=== PATIENT | male | born 1940 | race Caucasian/White ===

== ENCOUNTER 2020-12-18 20:10 | Inpatient (IN) | payer MEDICARE, MEDICAID ==
[~2020-12-18] VITALS: Ht 170.2 cm; Wt 73.3 kg
[2020-12-18] MEDS ORDERED: SODIUM CHLORIDE 0.9% 1,000 ML IV ONE (20:45)
[2020-12-18 20:55] LABS: HEMATOCRIT. 44.7 % (42.0-52.0); HEMOGLOBIN. 14.2 g/dL (14.0-18.0); MEAN CORPUSCULAR HEMOGLOBIN 22.8 pg (28.0-32.0); MEAN CORPUSCULAR VOLUME 72.1 fL (80.0-94.0); MEAN PLATELET VOLUME 9.5 fl (7.4-10.4); PLATELET 93 x1000/uL (130-400); RED BLOOD CELL COUNT 6.21 mill/uL (4.7-6.1); RED CELL DISTRIBUTION WIDTH 20.8 % (11.6-14.6)
[2020-12-18 21:01] LABS: CHLORIDE 89 mEq/L (98-107)
[2020-12-18 21:03] LABS: PROTHROMBIN TIME 10.9 sec (9.6-11.0)
[2020-12-18 21:40] LABS: PLATELET ESTIMATE DECREASED
[2020-12-18] MEDS ORDERED: INSULIN REGULAR (DRIP) 100 UNITS in SODIUM CHLORIDE 0.9% 100 ML IV ONE (22:00)
[2020-12-18] MEDS ORDERED: PIPERACILLIN/TAZ 3.375G PREMIX 50 ML IV NR (22:00)
[2020-12-18] MEDS ORDERED: VANCOMYCIN 1 G PREMIX 200 ML IV SCH (22:00)
[2020-12-18] MEDS ORDERED: KCL 20MEQ/100ML PREMIX 100 ML IV ONE (22:00)
[2020-12-18] MEDS ORDERED: PIPERACILLIN/TAZOBACTAM 3.375GM/50ML PREMIX IV ONE (22:00)
[2020-12-18 22:19] LABS: PHOSPHORUS 3.9 mg/dL (2.5-4.9)
[2020-12-18 23:01] LABS: CLARITY URINE CLEAR (CLEAR); COLOR URINE YELLOW (YELLOW); KETONES URINE 1+ (NEGATIVE); LEUKOCYTE ESTERASE URINE NEGATIVE (NEGATIVE); NITRITE URINE NEGATIVE (NEGATIVE); OCCULT BLOOD URINE TRACE (NEGATIVE); PROTEIN URINE 2+ (NEGATIVE); SPECIFIC GRAVITY URINE 1.022 (1.005-1.030); UROBILINOGEN URINE 0.2 E.U./dL (0.2-1.0)
[2020-12-19] VITALS (53 sets, daily range): BP systolic 93–155; BP diastolic 30–96
[2020-12-19] MEDS ORDERED: DEXT 5%/0.45% NACL 1000ML 1,000 ML IV SCH
[2020-12-19] MEDS: MORPHINE SULFATE 2 MG/ML CPJ (NOT FOR IM USE) IV PRN (00:52)
[2020-12-19] MEDS: NOREPINEPHRINE 8 MG in DEXTROSE 5% WATER 250 ML IV PRN (01:24)
[2020-12-19 02:55] LABS: CHLORIDE 94 mEq/L (98-107)
[2020-12-19] MEDS ORDERED: ONDANSETRON HCL 4MG/2ML INJ IV PRN (08:00)
[2020-12-19] MEDS ORDERED: ACETAMINOPHEN 325MG TABLET PO PRN (08:00)
[2020-12-19] MEDS: SODIUM CHLORIDE 0.9% 1,000 ML IV SCH ×2 (08:21→15:22)
[2020-12-19] MEDS: CEFEPIME 1,000 MG in DEXTROSE 5% WATER 50 ML IV SCH (09:47)
[2020-12-19] MEDS ORDERED: INSULIN REGULAR (DRIP) 100 UNITS in SODIUM CHLORIDE 0.9% 99 ML IV ONE (10:15)
[2020-12-19] MEDS ORDERED: DEXTROSE 50% WATER 50ML SYRINGE IV PRN (10:30)
[2020-12-19] MEDS ORDERED: INSULIN GLARGINE UD 100 UNITS/ML SYR SUBCUT NR (11:00)
[2020-12-19] MEDS ORDERED: LIDOCAINE HCL 1% 20ML VIAL (Pyxis) INJ INFIL NR (11:52)
[2020-12-19] MEDS: MIDODRINE HCL 5MG TABLET PO SCH ×3 (11:59→17:28)
[2020-12-19] MEDS: BLOOD SUGAR DIAGNOSTIC STRIP TEST SCH ×3 (12:48→21:00)
[2020-12-19] MEDS: INSULIN LISPRO 100 UNITS/ML SUBCUT SCH ×3 (13:20→21:54)
[2020-12-19] MEDS ORDERED: AMLO5TAB88 MT (13:32)
[2020-12-19] MEDS ORDERED: ENAL20TA18 MT (13:32)
[2020-12-19] MEDS ORDERED: GLIP1TAB5 MT (13:32)
[2020-12-19] MEDS ORDERED: SODIUM HYPOCHLORITE 0.125% 473ML SOLUTION TOP SCH (14:00)
[2020-12-19] MEDS ORDERED: AMIKACIN 500MG in SODIUM CHLORIDE 0.9% 100ML IV NR (15:00)
[2020-12-19] MEDS: VANCOMYCIN 1 G PREMIX 200 ML IV SCH (21:40)
[2020-12-19] MEDS ORDERED: INSULIN GLARGINE UD 100 UNITS/ML SYR SUBCUT SCH (22:00)
[2020-12-19] MEDS: HYDROCODONE/ACETAMINOPHEN 5/325MG TABLET PO PRN (23:29)
[2020-12-20] VITALS (75 sets, daily range): BP systolic 82–155; BP diastolic 50–89
[2020-12-20] MEDS: CEFEPIME 1,000 MG in DEXTROSE 5% WATER 50 ML IV SCH ×3 (00:06→22:43)
[2020-12-20] MEDS: SODIUM CHLORIDE 0.9% 1,000 ML IV SCH ×3 (00:06→16:21)
[2020-12-20 05:55] LABS: HEMATOCRIT. 42.3 % (42.0-52.0); HEMOGLOBIN. 13.6 g/dL (14.0-18.0); MEAN CORPUSCULAR HEMOGLOBIN 22.3 pg (28.0-32.0); MEAN CORPUSCULAR VOLUME 69.4 fL (80.0-94.0); MEAN PLATELET VOLUME 9.2 fl (7.4-10.4); PLATELET 67 x1000/uL (130-400); RED BLOOD CELL COUNT 6.09 mill/uL (4.7-6.1); RED CELL DISTRIBUTION WIDTH 20.7 % (11.6-14.6)
[2020-12-20] MEDS: BLOOD SUGAR DIAGNOSTIC STRIP TEST SCH ×4 (08:22→21:47)
[2020-12-20] MEDS: INSULIN LISPRO 100 UNITS/ML SUBCUT SCH ×4 (08:31→21:00)
[2020-12-20] MEDS: MIDODRINE HCL 5MG TABLET PO SCH ×3 (08:32→16:20)
[2020-12-20 11:34] LABS: PLATELET ESTIMATE DECREASED
[2020-12-20] MEDS: INSULIN GLARGINE UD 100 UNITS/ML SYR SUBCUT SCH ×2 (13:22→22:00)
[2020-12-20] MEDS: MORPHINE SULFATE 2 MG/ML CPJ (NOT FOR IM USE) IV PRN ×2 (18:11→18:21)
[2020-12-20] MEDS: VANCOMYCIN 1 G PREMIX 200 ML IV SCH (21:46)
[2020-12-21] VITALS (92 sets, daily range): BP systolic 83–143; BP diastolic 52–83
[2020-12-21] MEDS: BLOOD SUGAR DIAGNOSTIC STRIP TEST SCH ×4 (06:53→21:36)
[2020-12-21] MEDS: INSULIN LISPRO 100 UNITS/ML SUBCUT SCH ×4 (06:55→21:00)
[2020-12-21 08:00] LABS: HEMATOCRIT. 38.6 % (42.0-52.0); HEMOGLOBIN. 12.7 g/dL (14.0-18.0); MEAN CORPUSCULAR HEMOGLOBIN 22.6 pg (28.0-32.0); MEAN CORPUSCULAR VOLUME 68.9 fL (80.0-94.0); MEAN PLATELET VOLUME 10.9 fl (7.4-10.4); PLATELET 88 x1000/uL (130-400); RED BLOOD CELL COUNT 5.61 mill/uL (4.7-6.1); RED CELL DISTRIBUTION WIDTH 20.2 % (11.6-14.6)
[2020-12-21] MEDS: MIDODRINE HCL 5MG TABLET PO SCH ×3 (09:00→17:00)
[2020-12-21] MEDS: CEFEPIME 1,000 MG in DEXTROSE 5% WATER 50 ML IV SCH (09:33)
[2020-12-21] MEDS: INSULIN GLARGINE UD 100 UNITS/ML SYR SUBCUT SCH ×2 (09:51→21:47)
[2020-12-21] MEDS ORDERED: DEXT 5%/0.9% NACL 1,000 ML IV SCH (11:30)
[2020-12-21] MEDS: FUROSEMIDE 40MG/4ML VIAL IVP SCH (11:45)
[2020-12-21 12:43] LABS: CREATINE KINASE 94 IU/L (39-308)
[2020-12-21 12:56] LABS: PLATELET ESTIMATE DECREASED
[2020-12-21] MEDS ORDERED: KCL 20MEQ/100ML PREMIX 100 ML IV SCH (13:00)
[2020-12-21] MEDS: PIPERACILLIN SODIUM/TAZOBACTAM 4.5 G in DEXT 5% WATER 100 ML IV SCH ×2 (15:28→20:54)
[2020-12-22] VITALS (86 sets, daily range): BP systolic 82–137; BP diastolic 46–76
[2020-12-22] MEDS: MORPHINE SULFATE 2 MG/ML CPJ (NOT FOR IM USE) IV PRN (00:57)
[2020-12-22] MEDS: PIPERACILLIN SODIUM/TAZOBACTAM 4.5 G in DEXT 5% WATER 100 ML IV SCH ×4 (06:16→21:48)
[2020-12-22] MEDS: BLOOD SUGAR DIAGNOSTIC STRIP TEST SCH ×4 (07:00→21:27)
[2020-12-22] MEDS: INSULIN LISPRO 100 UNITS/ML SUBCUT SCH ×4 (08:20→21:49)
[2020-12-22] MEDS: MIDODRINE HCL 5MG TABLET PO SCH ×3 (09:05→16:33)
[2020-12-22] MEDS: FUROSEMIDE 40MG/4ML VIAL IVP SCH ×2 (09:05→16:33)
[2020-12-22] MEDS: HYDROCODONE/ACETAMINOPHEN 5/325MG TABLET PO PRN (09:06)
[2020-12-22] MEDS: INSULIN GLARGINE UD 100 UNITS/ML SYR SUBCUT SCH ×2 (11:43→21:50)
[2020-12-22] MEDS: DEXT 5% WATER + KCL 20MEQ/L 1,000 ML IV SCH (11:48)
[2020-12-22] MEDS ORDERED: KCL 20MEQ/100ML PREMIX 100 ML IV SCH (12:00)
[2020-12-22 16:06] LABS: CREATININE URINE RANDOM < 10.0 mg/dL
[2020-12-23] VITALS (92 sets, daily range): BP systolic 87–148; BP diastolic 53–76
[2020-12-23] MEDS: NOREPINEPHRINE 8 MG in DEXTROSE 5% WATER 250 ML IV PRN (01:18)
[2020-12-23] MEDS: PIPERACILLIN SODIUM/TAZOBACTAM 4.5 G in DEXT 5% WATER 100 ML IV SCH ×3 (04:06→19:52)
[2020-12-23 05:29] LABS: HEMATOCRIT. 39.3 % (42.0-52.0); HEMOGLOBIN. 12.8 g/dL (14.0-18.0); MEAN CORPUSCULAR HEMOGLOBIN 22.5 pg (28.0-32.0); MEAN CORPUSCULAR VOLUME 68.9 fL (80.0-94.0); MEAN PLATELET VOLUME 9.5 fl (7.4-10.4); PLATELET 143 x1000/uL (130-400); RED CELL DISTRIBUTION WIDTH 19.6 % (11.6-14.6)
[2020-12-23 05:43] LABS: PHOSPHORUS 3.1 mg/dL (2.5-4.9)
[2020-12-23] MEDS: BLOOD SUGAR DIAGNOSTIC STRIP TEST SCH ×4 (06:50→21:19)
[2020-12-23] MEDS: FUROSEMIDE 40MG/4ML VIAL IVP SCH ×2 (06:54→18:36)
[2020-12-23] MEDS: INSULIN LISPRO 100 UNITS/ML SUBCUT SCH ×4 (06:54→21:00)
[2020-12-23] MEDS: MIDODRINE HCL 5MG TABLET PO SCH ×3 (09:39→18:36)
[2020-12-23] MEDS: INSULIN GLARGINE UD 100 UNITS/ML SYR SUBCUT SCH ×2 (09:40→21:35)
[2020-12-23] MEDS ORDERED: MAGNESIUM 2 G PREMIX 50 ML IV NR (11:00)
[2020-12-23] MEDS ORDERED: POTASSIUM CHLORIDE INJ 40 MEQ in DEXT 5% WATER 250 ML IV NR (11:00)
[2020-12-23 13:54] LABS: PLATELET ESTIMATE NORMAL
[2020-12-23] MEDS: DEXT 5% WATER + KCL 20MEQ/L 1,000 ML IV SCH (21:27)
[2020-12-24] VITALS (96 sets, daily range): BP systolic 98–144; BP diastolic 46–92
[2020-12-24] MEDS: HYDROCODONE/ACETAMINOPHEN 5/325MG TABLET PO PRN (02:26)
[2020-12-24] MEDS: PIPERACILLIN SODIUM/TAZOBACTAM 4.5 G in DEXT 5% WATER 100 ML IV SCH ×2 (03:28→12:49)
[2020-12-24 05:42] LABS: HEMATOCRIT. 40.3 % (42.0-52.0); HEMOGLOBIN. 13.2 g/dL (14.0-18.0); MEAN CORPUSCULAR HEMOGLOBIN 22.8 pg (28.0-32.0); MEAN CORPUSCULAR VOLUME 69.5 fL (80.0-94.0); MEAN PLATELET VOLUME 8.7 fl (7.4-10.4); PLATELET 156 x1000/uL (130-400); RED BLOOD CELL COUNT 5.79 mill/uL (4.7-6.1); RED CELL DISTRIBUTION WIDTH 19.9 % (11.6-14.6)
[2020-12-24 05:47] LABS: PHOSPHORUS 3.2 mg/dL (2.5-4.9)
[2020-12-24] MEDS: NOREPINEPHRINE 8 MG in DEXTROSE 5% WATER 250 ML IV PRN (06:06)
[2020-12-24] MEDS: FUROSEMIDE 40MG/4ML VIAL IVP SCH ×2 (06:33→17:55)
[2020-12-24] MEDS: BLOOD SUGAR DIAGNOSTIC STRIP TEST SCH ×4 (07:22→21:00)
[2020-12-24] MEDS: INSULIN LISPRO 100 UNITS/ML SUBCUT SCH ×4 (07:23→21:00)
[2020-12-24] MEDS: MIDODRINE HCL 5MG TABLET PO SCH ×3 (09:00→15:58)
[2020-12-24] MEDS: INSULIN GLARGINE UD 100 UNITS/ML SYR SUBCUT SCH (09:08)
[2020-12-24] MEDS: DEXT 5%/0.9% NACL 1,000 ML IV SCH (09:57)
[2020-12-24 11:29] LABS: PLATELET ESTIMATE NORMAL
[2020-12-24] MEDS ORDERED: FAT EMULSIONS 500 ML IV SCH (21:00)
[2020-12-24] MEDS: MEROPENEM 1,000 MG in SODIUM CHLORIDE 0.9% 100 ML IV SCH (22:51)
[2020-12-25] VITALS (87 sets, daily range): BP systolic 90–138; BP diastolic 31–79
[2020-12-25 05:26] LABS: HEMATOCRIT. 36.7 % (42.0-52.0); HEMOGLOBIN. 12.6 g/dL (14.0-18.0); MEAN CORPUSCULAR HEMOGLOBIN 23.4 pg (28.0-32.0); MEAN CORPUSCULAR VOLUME 68.3 fL (80.0-94.0); MEAN PLATELET VOLUME 10.1 fl (7.4-10.4); PLATELET 209 x1000/uL (130-400); RED BLOOD CELL COUNT 5.37 mill/uL (4.7-6.1); RED CELL DISTRIBUTION WIDTH 19.3 % (11.6-14.6)
[2020-12-25 05:41] LABS: PHOSPHORUS 4.7 mg/dL (2.5-4.9)
[2020-12-25 07:19] LABS: PLATELET ESTIMATE NORMAL
[2020-12-25] MEDS: MEROPENEM 1,000 MG in SODIUM CHLORIDE 0.9% 100 ML IV SCH ×2 (07:52→21:51)
[2020-12-25] MEDS: BLOOD SUGAR DIAGNOSTIC STRIP TEST SCH ×4 (07:52→21:00)
[2020-12-25] MEDS: FUROSEMIDE 40MG/4ML VIAL IVP SCH (07:52)
[2020-12-25] MEDS ORDERED: POTASSIUM CHLORIDE INJ 30 MEQ in DEXT 5%/0.9% NACL 1,000 ML IV ONE (08:45)
[2020-12-25] MEDS: INSULIN LISPRO 100 UNITS/ML SUBCUT SCH ×4 (08:51→21:55)
[2020-12-25] MEDS: MIDODRINE HCL 5MG TABLET PO SCH ×3 (08:52→17:40)
[2020-12-25] MEDS: DEXT 5%/0.9% NACL 1,000 ML IV SCH (08:56)
[2020-12-25] MEDS ORDERED: POTASSIUM CHLORIDE INJ 30 MEQ in DEXT 5% WATER 250 ML IV SCH (11:00)
[2020-12-25] MEDS ORDERED: TOTAL PARENTERAL NUTRITION 1,560 ML IV SCH (21:00)
[2020-12-26] VITALS (82 sets, daily range): BP systolic 85–142; BP diastolic 50–81
[2020-12-26 05:43] LABS: HEMATOCRIT. 34.4 % (42.0-52.0); HEMOGLOBIN. 11.1 g/dL (14.0-18.0); MEAN CORPUSCULAR HEMOGLOBIN 22.3 pg (28.0-32.0); MEAN PLATELET VOLUME 10.1 fl (7.4-10.4); PLATELET 192 x1000/uL (130-400); RED BLOOD CELL COUNT 4.99 mill/uL (4.7-6.1); RED CELL DISTRIBUTION WIDTH 19.3 % (11.6-14.6)
[2020-12-26] MEDS ORDERED: INSULIN LISPRO 100 UNITS/ML SUBCUT SCH (06:30)
[2020-12-26] MEDS ORDERED: HEPARIN SODIUM 1,000 UNIT/1ML VIAL IV ONE (07:41)
[2020-12-26] MEDS: BLOOD SUGAR DIAGNOSTIC STRIP TEST SCH ×4 (08:16→21:12)
[2020-12-26] MEDS: MEROPENEM 1,000 MG in SODIUM CHLORIDE 0.9% 100 ML IV SCH ×2 (08:54→20:45)
[2020-12-26] MEDS: INSULIN LISPRO 100 UNITS/ML SUBCUT SCH ×4 (08:55→21:15)
[2020-12-26] MEDS: MIDODRINE HCL 5MG TABLET PO SCH ×3 (09:11→18:21)
[2020-12-26] MEDS ORDERED: IOHEXOL-300 100 ML BOTTLE ONE (11:43)
[2020-12-26] MEDS ORDERED: LIDOCAINE HCL 1% 20ML VIAL (Pyxis) INJ ONE (11:44)
[2020-12-26] MEDS ORDERED: IODIXANOL 320MG/ML 100 ML BOTTLE IV ONE (11:44)
[2020-12-26] MEDS ORDERED: FENTANYL CITRATE/PF 50MCG/ML 5ML VIAL ONE (11:58)
[2020-12-26] MEDS ORDERED: MIDAZOLAM HCL 5 MG/5 ML VIAL ONE (11:59)
[2020-12-26 13:40] LABS: PLATELET ESTIMATE NORMAL
[2020-12-26] MEDS ORDERED: INSULIN LISPRO 100 UNITS/ML SUBCUT NR (19:30)
[2020-12-26] MEDS ORDERED: TOTAL PARENTERAL NUTRITION 1,560 ML IV SCH (21:00)
[2020-12-27] VITALS (95 sets, daily range): BP systolic 70–148; BP diastolic 39–82
[2020-12-27] MEDS: BLOOD SUGAR DIAGNOSTIC STRIP TEST SCH ×4 (06:28→21:03)
[2020-12-27] MEDS: INSULIN LISPRO 100 UNITS/ML SUBCUT SCH ×4 (06:30→21:07)
[2020-12-27 07:54] LABS: HEMATOCRIT. 34.8 % (42.0-52.0); HEMOGLOBIN. 11.4 g/dL (14.0-18.0); MEAN CORPUSCULAR HEMOGLOBIN 22.5 pg (28.0-32.0); MEAN CORPUSCULAR VOLUME 68.7 fL (80.0-94.0); MEAN PLATELET VOLUME 12.1 fl (7.4-10.4); PLATELET 166 x1000/uL (130-400); RED BLOOD CELL COUNT 5.07 mill/uL (4.7-6.1); RED CELL DISTRIBUTION WIDTH 19.1 % (11.6-14.6)
[2020-12-27] MEDS: NOREPINEPHRINE 8 MG in DEXTROSE 5% WATER 250 ML IV PRN (08:34)
[2020-12-27] MEDS: MEROPENEM 1,000 MG in SODIUM CHLORIDE 0.9% 100 ML IV SCH ×2 (08:45→20:24)
[2020-12-27] MEDS: MIDODRINE HCL 5MG TABLET PO SCH ×3 (08:45→16:44)
[2020-12-27 08:57] LABS: NUCLEATED RED BLOOD CELLS 2 /100 WBC; PLATELET ESTIMATE NORMAL
[2020-12-27] MEDS: POTASSIUM CHLORIDE 20MEQ/PACKET PO SCH (09:56)
[2020-12-27] MEDS: FUROSEMIDE 40MG TABLET PO SCH (09:56)
[2020-12-27] MEDS: MORPHINE SULFATE 2 MG/ML CPJ (NOT FOR IM USE) IV PRN (14:35)
[2020-12-27] MEDS: LINEZOLID 600MG TABLET PO SCH (21:03)
[2020-12-28] VITALS (90 sets, daily range): BP systolic 87–180; BP diastolic 39–85
[2020-12-28 05:21] LABS: HEMOGLOBIN. 11.3 g/dL (14.0-18.0); MEAN CORPUSCULAR HEMOGLOBIN 22.1 pg (28.0-32.0); MEAN CORPUSCULAR VOLUME 68.1 fL (80.0-94.0); MEAN PLATELET VOLUME 8.5 fl (7.4-10.4); PLATELET 134 x1000/uL (130-400); RED BLOOD CELL COUNT 5.13 mill/uL (4.7-6.1); RED CELL DISTRIBUTION WIDTH 18.6 % (11.6-14.6)
[2020-12-28] MEDS: NOREPINEPHRINE 8 MG in DEXTROSE 5% WATER 250 ML IV PRN (06:57)
[2020-12-28] MEDS: BLOOD SUGAR DIAGNOSTIC STRIP TEST SCH ×4 (06:57→21:30)
[2020-12-28] MEDS: INSULIN LISPRO 100 UNITS/ML SUBCUT SCH ×4 (07:06→21:31)
[2020-12-28] MEDS: MORPHINE SULFATE 2 MG/ML CPJ (NOT FOR IM USE) IV PRN ×2 (08:00→15:03)
[2020-12-28] MEDS: LINEZOLID 600MG TABLET PO SCH ×2 (08:38→20:44)
[2020-12-28] MEDS: MEROPENEM 1,000 MG in SODIUM CHLORIDE 0.9% 100 ML IV SCH (08:38)
[2020-12-28] MEDS: POTASSIUM CHLORIDE 20MEQ/PACKET PO SCH (08:38)
[2020-12-28] MEDS: MIDODRINE HCL 5MG TABLET PO SCH ×3 (08:39→17:00)
[2020-12-28] MEDS: FUROSEMIDE 40MG TABLET PO SCH (08:40)
[2020-12-28] MEDS ORDERED: LIDOCAINE HCL 1% 20ML VIAL (Pyxis) INJ ONE (08:53)
[2020-12-28] MEDS: DEXT 5%/0.45% NACL 1000ML 1,000 ML IV SCH (15:07)
[2020-12-28] MEDS ORDERED: BUPIVACAINE HCL/PF 0.5% (5MG/ML) 10ML ONE (17:42)
[2020-12-28] MEDS ORDERED: BACITRACIN 15GM TUBE TOP ONE (17:42)
[2020-12-28] MEDS ORDERED: VANCOMYCIN HCL 1 GM/VIAL ONE (17:43)
[2020-12-28] MEDS ORDERED: POLYMYXIN B SULFATE 500000 UNITS/VIAL ONE (17:43)
[2020-12-28] MEDS ORDERED: ROPIVACAINE HCL 10MG/ML 20 ML VIAL EPI ONE (18:22)
[2020-12-28] MEDS ORDERED: PROPOFOL 200MG/20ML VIAL IV ONE (18:37)
[2020-12-28] MEDS ORDERED: CEFAZOLIN SODIUM 1000MG/VIAL ONE (18:37)
[2020-12-28] MEDS ORDERED: MIDAZOLAM HCL 2 MG/2 ML VIAL ONE (18:37)
[2020-12-28] MEDS ORDERED: EPHEDRINE SULFATE 50MG/ML VIAL ONE (18:37)
[2020-12-28] MEDS ORDERED: FENTANYL CITRATE/PF 50MCG/ML 2ML VIAL ONE (18:37)
[2020-12-28 19:29] LABS: PLATELET ESTIMATE NORMAL
[2020-12-29] VITALS (85 sets, daily range): BP systolic 68–180; BP diastolic 40–98
[2020-12-29] MEDS: MEROPENEM 1,000 MG in SODIUM CHLORIDE 0.9% 100 ML IV SCH ×3 (00:03→21:00)
[2020-12-29] MEDS: MORPHINE SULFATE 2 MG/ML CPJ (NOT FOR IM USE) IV PRN ×3 (00:05→12:17)
[2020-12-29] MEDS: INSULIN LISPRO 100 UNITS/ML SUBCUT SCH ×5 (06:42→21:15)
[2020-12-29] MEDS: BLOOD SUGAR DIAGNOSTIC STRIP TEST SCH ×4 (06:42→21:00)
[2020-12-29] MEDS: DEXT 5%/0.45% NACL 1000ML 1,000 ML IV SCH (06:43)
[2020-12-29 06:49] LABS: HEMATOCRIT. 28.2 % (42.0-52.0); HEMOGLOBIN. 8.9 g/dL (14.0-18.0); MEAN CORPUSCULAR VOLUME 69.6 fL (80.0-94.0); MEAN PLATELET VOLUME 8.9 fl (7.4-10.4); PLATELET 87 x1000/uL (130-400); RED BLOOD CELL COUNT 4.06 mill/uL (4.7-6.1); RED CELL DISTRIBUTION WIDTH 18.7 % (11.6-14.6)
[2020-12-29 07:00] LABS: PHOSPHORUS 3.5 mg/dL (2.5-4.9)
[2020-12-29] MEDS: LINEZOLID 600MG TABLET PO SCH ×2 (09:15→21:00)
[2020-12-29] MEDS: POTASSIUM CHLORIDE 20MEQ/PACKET PO SCH (09:15)
[2020-12-29] MEDS: FUROSEMIDE 40MG TABLET PO SCH (09:16)
[2020-12-29] MEDS: MIDODRINE HCL 5MG TABLET PO SCH ×3 (09:16→17:50)
[2020-12-29 11:34] LABS: TOTAL IRON BINDING CAPACITY 130 ug/dL (250-450)
[2020-12-29 12:06] LABS: VITAMIN B12 SERUM >2000 pg/mL pg/mL (211-911)
[2020-12-29 13:18] LABS: FERRITIN 336 ng/mL (22-322)
[2020-12-29 13:58] LABS: PLATELET ESTIMATE DECREASED
[2020-12-30] MEDS: MORPHINE SULFATE 2 MG/ML CPJ (NOT FOR IM USE) IV PRN (00:28)
[2020-12-30 04:00] VITALS: BP 124/71
[2020-12-30] MEDS: BLOOD SUGAR DIAGNOSTIC STRIP TEST SCH ×3 (05:40→19:49)
[2020-12-30 06:33] LABS: HEMATOCRIT. 25.2 % (42.0-52.0); HEMOGLOBIN. 8.4 g/dL (14.0-18.0); MEAN CORPUSCULAR VOLUME 69.2 fL (80.0-94.0); PLATELET 101 x1000/uL (130-400); RED BLOOD CELL COUNT 3.64 mill/uL (4.7-6.1); RED CELL DISTRIBUTION WIDTH 18.2 % (11.6-14.6)
[2020-12-30] MEDS: INSULIN LISPRO 100 UNITS/ML SUBCUT SCH ×4 (06:38→20:01)
[2020-12-30 08:00] VITALS: BP 117/53
[2020-12-30] MEDS: MEROPENEM 1,000 MG in SODIUM CHLORIDE 0.9% 100 ML IV SCH ×2 (09:46→20:03)
[2020-12-30] MEDS: FUROSEMIDE 40MG TABLET PO SCH (09:56)
[2020-12-30] MEDS: LINEZOLID 600MG TABLET PO SCH ×2 (09:56→20:03)
[2020-12-30] MEDS: MIDODRINE HCL 5MG TABLET PO SCH ×3 (09:56→18:45)
[2020-12-30] MEDS: POTASSIUM CHLORIDE 20MEQ/PACKET PO SCH (09:56)
[2020-12-30 12:00] VITALS: BP 100/43
[2020-12-30] MEDS: HYDROCODONE/ACETAMINOPHEN 5/325MG TABLET PO PRN (12:20)
[2020-12-30 15:11] LABS: NUCLEATED RED BLOOD CELLS 1 /100 WBC
[2020-12-30 15:12] LABS: PLATELET ESTIMATE DECREASED
[2020-12-30 16:00] VITALS: BP 152/65
[2020-12-30 20:00] VITALS: BP 144/62
[2020-12-31] VITALS: BP 145/64
[2020-12-31 04:00] VITALS: BP 140/60
[2020-12-31] MEDS: BLOOD SUGAR DIAGNOSTIC STRIP TEST SCH ×4 (05:39→21:59)
[2020-12-31] MEDS: INSULIN LISPRO 100 UNITS/ML SUBCUT SCH ×4 (05:39→21:59)
[2020-12-31 07:43] LABS: BASOPHILS % 0.5 % (0.0-2.0); EOSINOPHILS % 0.2 % (0.0-5.0); HEMATOCRIT. 26.4 % (42.0-52.0); HEMOGLOBIN. 8.8 g/dL (14.0-18.0); LYMPHOCYTES % 12.7 % (20.0-50.0); MEAN CORPUSCULAR HEMOGLOBIN 22.6 pg (28.0-32.0); MEAN CORPUSCULAR VOLUME 67.8 fL (80.0-94.0); MEAN PLATELET VOLUME 9.7 fl (7.4-10.4); MONOCYTES % 9.5 % (2.0-8.0); NEUTROPHILS % 77.1 % (40.0-76.0); PLATELET 178 x1000/uL (130-400); RED BLOOD CELL COUNT 3.89 mill/uL (4.7-6.1); RED CELL DISTRIBUTION WIDTH 18.1 % (11.6-14.6)
[2020-12-31 08:00] VITALS: BP 147/61
[2020-12-31] MEDS: MIDODRINE HCL 5MG TABLET PO SCH ×2 (09:00→13:00)
[2020-12-31] MEDS: FOLIC ACID 1MG TABLET PO SCH (09:28)
[2020-12-31] MEDS: MEROPENEM 1,000 MG in SODIUM CHLORIDE 0.9% 100 ML IV SCH ×2 (09:28→21:12)
[2020-12-31] MEDS: FUROSEMIDE 40MG TABLET PO SCH (09:29)
[2020-12-31] MEDS: POTASSIUM CHLORIDE 20MEQ TABLET SR PO SCH (09:29)
[2020-12-31] MEDS: HYDROCODONE/ACETAMINOPHEN 5/325MG TABLET PO PRN (09:31)
[2020-12-31] MEDS: LINEZOLID 600MG TABLET PO SCH ×2 (09:32→21:12)
[2020-12-31 12:00] VITALS: BP 157/52
[2020-12-31] MEDS ORDERED: HYDRALAZINE 20MG/ML VIAL IV PRN (15:00)
[2020-12-31 16:00] VITALS: BP 138/64
[2020-12-31 20:00] VITALS: BP 110/57
[2020-12-31] MEDS: MORPHINE SULFATE 2 MG/ML CPJ (NOT FOR IM USE) IV PRN (21:16)
[2021-01-01] VITALS: BP 115/66
[2021-01-01 04:00] VITALS: BP 126/56
[2021-01-01] MEDS: BLOOD SUGAR DIAGNOSTIC STRIP TEST SCH ×4 (06:27→20:57)
[2021-01-01 06:38] LABS: HEMATOCRIT. 26.8 % (42.0-52.0); HEMOGLOBIN. 8.7 g/dL (14.0-18.0); MEAN CORPUSCULAR HEMOGLOBIN 22.6 pg (28.0-32.0); MEAN CORPUSCULAR VOLUME 69.8 fL (80.0-94.0); MEAN PLATELET VOLUME 11.2 fl (7.4-10.4); PLATELET 161 x1000/uL (130-400); RED BLOOD CELL COUNT 3.84 mill/uL (4.7-6.1); RED CELL DISTRIBUTION WIDTH 18.4 % (11.6-14.6)
[2021-01-01] MEDS: INSULIN LISPRO 100 UNITS/ML SUBCUT SCH ×4 (07:40→20:57)
[2021-01-01 08:00] VITALS: BP 146/55
[2021-01-01] MEDS: POTASSIUM CHLORIDE 20MEQ TABLET SR PO SCH (09:48)
[2021-01-01] MEDS: FOLIC ACID 1MG TABLET PO SCH (09:48)
[2021-01-01] MEDS: LINEZOLID 600MG TABLET PO SCH (09:48)
[2021-01-01] MEDS: FUROSEMIDE 40MG TABLET PO SCH (09:48)
[2021-01-01] MEDS: MORPHINE SULFATE 2 MG/ML CPJ (NOT FOR IM USE) IV PRN (09:55)
[2021-01-01 12:00] VITALS: BP 139/61
[2021-01-01 13:44] LABS: PLATELET ESTIMATE NORMAL
[2021-01-01 16:00] VITALS: BP 158/56
[2021-01-01 20:00] VITALS: BP 143/84
[2021-01-01] MEDS ORDERED: MEROPENEM 1,000 MG in SODIUM CHLORIDE 0.9% 100 ML IV SCH (21:00)
[2021-01-01] MEDS: CEFTAZIDIME PENTAHYDRATE 2 G in DEXT 5% WATER 100 ML IV SCH (21:39)
[2021-01-01] MEDS: AMPICILLIN 2,000 MG in SODIUM CHLORIDE 0.9% 100 ML IV SCH (23:12)
[2021-01-02 04:00] VITALS: BP 133/74
[2021-01-02] MEDS: AMPICILLIN 2,000 MG in SODIUM CHLORIDE 0.9% 100 ML IV SCH ×3 (05:32→21:16)
[2021-01-02] MEDS: BLOOD SUGAR DIAGNOSTIC STRIP TEST SCH ×4 (05:42→20:30)
[2021-01-02] MEDS: INSULIN LISPRO 100 UNITS/ML SUBCUT SCH ×4 (06:00→20:30)
[2021-01-02 07:22] LABS: HEMATOCRIT. 25.3 % (42.0-52.0); HEMOGLOBIN. 8.4 g/dL (14.0-18.0); MEAN CORPUSCULAR HEMOGLOBIN 22.8 pg (28.0-32.0); MEAN CORPUSCULAR VOLUME 68.9 fL (80.0-94.0); MEAN PLATELET VOLUME 9.3 fl (7.4-10.4); PLATELET 186 x1000/uL (130-400); RED BLOOD CELL COUNT 3.68 mill/uL (4.7-6.1); RED CELL DISTRIBUTION WIDTH 18.6 % (11.6-14.6)
[2021-01-02 08:00] VITALS: BP 130/60
[2021-01-02] MEDS: CEFTAZIDIME PENTAHYDRATE 2 G in DEXT 5% WATER 100 ML IV SCH ×2 (09:21→20:30)
[2021-01-02] MEDS: FOLIC ACID 1MG TABLET PO SCH (09:21)
[2021-01-02] MEDS: FUROSEMIDE 40MG TABLET PO SCH (09:21)
[2021-01-02] MEDS: POTASSIUM CHLORIDE 20MEQ TABLET SR PO SCH (09:21)
[2021-01-02 12:00] VITALS: BP 148/65
[2021-01-02 16:00] VITALS: BP 153/66
[2021-01-02 16:14] LABS: PLATELET ESTIMATE NORMAL
[2021-01-02 20:00] VITALS: BP 124/55
[2021-01-03] VITALS: BP 94/54
[2021-01-03 04:00] VITALS: BP 142/55
[2021-01-03] MEDS: AMPICILLIN 2,000 MG in SODIUM CHLORIDE 0.9% 100 ML IV SCH ×2 (05:14→13:17)
[2021-01-03] MEDS: BLOOD SUGAR DIAGNOSTIC STRIP TEST SCH ×3 (06:41→17:43)
[2021-01-03] MEDS: INSULIN LISPRO 100 UNITS/ML SUBCUT SCH ×2 (06:42→13:17)
[2021-01-03 07:14] LABS: BASOPHILS % 3.9 % (0.0-2.0); EOSINOPHILS % 0.7 % (0.0-5.0); HEMATOCRIT. 27.6 % (42.0-52.0); HEMOGLOBIN. 8.9 g/dL (14.0-18.0); LYMPHOCYTES % 15.3 % (20.0-50.0); MEAN CORPUSCULAR HEMOGLOBIN 22.6 pg (28.0-32.0); MEAN CORPUSCULAR VOLUME 69.9 fL (80.0-94.0); MEAN PLATELET VOLUME 8.3 fl (7.4-10.4); MONOCYTES % 10.3 % (2.0-8.0); NEUTROPHILS % 69.8 % (40.0-76.0); PLATELET 201 x1000/uL (130-400); RED BLOOD CELL COUNT 3.94 mill/uL (4.7-6.1); RED CELL DISTRIBUTION WIDTH 18.4 % (11.6-14.6)
[2021-01-03 08:00] VITALS: BP 143/63
[2021-01-03] MEDS ORDERED: ASCORBIC ACID 500 MG TABLET PO SCH (09:00)
[2021-01-03] MEDS ORDERED: ZINC SULFATE 220 MG ( 50 ) CAPSULE PO SCH (09:00)
[2021-01-03] MEDS: FUROSEMIDE 40MG TABLET PO SCH (10:01)
[2021-01-03] MEDS: CEFTAZIDIME PENTAHYDRATE 2 G in DEXT 5% WATER 100 ML IV SCH (10:02)
[2021-01-03] MEDS: POTASSIUM CHLORIDE 20MEQ TABLET SR PO SCH (10:02)
[2021-01-03] MEDS: FOLIC ACID 1MG TABLET PO SCH (10:02)
[2021-01-03 12:00] VITALS: BP 164/70
[2021-01-03 15:44] VITALS: BP 101/69
[2021-01-03 15:51] VITALS: BP 101/69
== END 2021-01-03 17:15 | DRG 853 ==
LOC: ER 20:10 → EDBEDREQSVC 22:46 → EDBEDREQ 22:46 → EDBEDREQTM 22:46 → CVICU 23:33 → ENRESERV 12-19 07:23 → 8WST 12-29 22:28
PROVIDERS: ADMIT Internal Medicine; ATTEND Internal Medicine
PROC: 02HV33Z Insertion of Infusion Device into Superior Vena Cava, Percutaneous Approach (ICD-10-PCS; 2020-12-18)
PROC: 0JBR0ZZ Excision of Left Foot Subcutaneous Tissue and Fascia, Open Approach (ICD-10-PCS; principal; 2020-12-19)
PROC: 047L34Z Dilation of Left Femoral Artery with Drug-eluting Intraluminal Device, Percutaneous Approach (ICD-10-PCS; 2020-12-26)
PROC: 047N34Z Dilation of Left Popliteal Artery with Drug-eluting Intraluminal Device, Percutaneous Approach (ICD-10-PCS; 2020-12-26)
PROC: B41G1ZZ Fluoroscopy of Left Lower Extremity Arteries using Low Osmolar Contrast (ICD-10-PCS; 2020-12-26)
PROC: 04HY32Z Insertion of Monitoring Device into Lower Artery, Percutaneous Approach (ICD-10-PCS; 2020-12-26)
PROC: 0Y6J0Z1 Detachment at Left Lower Leg, High, Open Approach (ICD-10-PCS; 2020-12-28)
PROC: 05HY33Z Insertion of Infusion Device into Upper Vein, Percutaneous Approach (ICD-10-PCS; 2020-12-28)
PROC: B54MZZA Ultrasonography of Right Upper Extremity Veins, Guidance (ICD-10-PCS; 2020-12-28)
DX: A41.81 Sepsis due to Enterococcus (principal); E11.10 Type 2 diabetes mellitus with ketoacidosis without coma; N17.0 Acute kidney failure with tubular necrosis; R65.21 Severe sepsis with septic shock; G93.41 Metabolic encephalopathy; E43 Unspecified severe protein-calorie malnutrition; A48.0 Gas gangrene; I50.33 Acute on chronic diastolic (congestive) heart failure; L97.429 Non-pressure chronic ulcer of left heel and midfoot with unspecified severity; E11.52 Type 2 diabetes mellitus with diabetic peripheral angiopathy with gangrene; E87.1 Hypo-osmolality and hyponatremia; I13.0 Hypertensive heart and chronic kidney disease with heart failure and stage 1 through stage 4 chronic kidney disease, or unspecified chronic kidney disease; K56.7 Ileus, unspecified; M86.8X7 Other osteomyelitis, ankle and foot; L03.116 Cellulitis of left lower limb; R18.8 Other ascites; E87.8 Other disorders of electrolyte and fluid balance, not elsewhere classified; E86.0 Dehydration; D69.6 Thrombocytopenia, unspecified; D50.9 Iron deficiency anemia, unspecified; E11.22 Type 2 diabetes mellitus with diabetic chronic kidney disease; E11.621 Type 2 diabetes mellitus with foot ulcer; E11.649 Type 2 diabetes mellitus with hypoglycemia without coma; E11.69 Type 2 diabetes mellitus with other specified complication; B95.2 Enterococcus as the cause of diseases classified elsewhere; E83.42 Hypomagnesemia; E87.6 Hypokalemia; K80.20 Calculus of gallbladder without cholecystitis without obstruction; L97.529 Non-pressure chronic ulcer of other part of left foot with unspecified severity; Z88.6 Allergy status to analgesic agent; Z79.899 Other long term (current) drug therapy; N18.9 Chronic kidney disease, unspecified; Z89.512 Acquired absence of left leg below knee
CPT/HCPCS: 36415; 37226; 71045; 73620; 74018; 75710; 76700; 76770; 76937; 80048; 80053; 80202; 81003; 82550; 82570; 82607; 82728; 82746; 82962; 83540; 83550; 83605; 83735; 83880; 84100; 84156; 84478; 84484; 85025; 85044; 85347; 87070; 87075; 87077; 87186; 87426; 88307; 88311; 92610; 93005; 93306; 93923; 93970; 97110; 97162; 97164; 97166; 97530; 99291; A6261; C1725; C1760; C1769; C1887; C1893; C1894; J0278; J0290; J0360; J0690; J0692; J0713; J1644; J1815; J1940; J2185; J2250; J2270; J2543; J2704; J2795; J3010; J3370; J3475; J3480; J3490; J7030; J7040; J7042; J7050; J7060; Q9967; A4315